=== PATIENT | male | born 1975 | race Caucasian/White ===

== ENCOUNTER 2021-08-31 08:28 | Emergency (ER) | payer OTHER ==
[~2021-08-31] VITALS: Ht 195.6 cm; Wt 104.3 kg
[2021-08-31 10:24] LABS: BASOPHILS % (AUTO) 0.1 % (0.0-5.0); EOSINOPHILS % (AUTO) 0.1 % (0.0-8.0); HEMATOCRIT 46.2 % (42-54); LYMPHOCYTES % (AUTO) 20.9 % (21.0-51.0); MEAN CORPUSCULAR HEMOGLOBIN 30.5 pg (27.0-33.0); MEAN CORPUSCULAR HGB CONC 34.6 g/dL (32.0-36.0); MONOCYTES % (AUTO) 7.9 % (3.0-13.0); NEUTROPHILS % (AUTO) 70.6 % (40.0-77.0); PLATELET COUNT (AUTO) 164 K/uL (130-400); RED BLOOD CELL COUNT(AUTO) 5.25 MIL/uL (4.50-6.20); RED CELL DISTRIBUTION WIDTH 12.9 % (11.0-15.5); WHITE BLOOD COUNT (AUTO) 7.9 K/uL (4.8-10.8)
[2021-08-31] MEDS ORDERED: ORPHENADRINE CITRATE 30 MG/ML ML IV SCH (10:30)
[2021-08-31] MEDS ORDERED: KETOROLAC 30MG VIAL (30MG/ML) IV ONE (10:30)
[2021-08-31] MEDS ORDERED: ONDANSETRON 4MG INJ IVP ONE (10:30)
[2021-08-31 10:34] LABS: CREATININE 1.4 mg/dL (0.5-1.5); POTASSIUM 3.6 mmol/L (3.5-5.1)
[2021-08-31 10:43] LABS: ALBUMIN 3.4 g/dL (3.5-5.0); BILIRUBIN,TOTAL 0.6 mg/dL (0.2-1.0); TOTAL PROTEIN, SERUM 7.6 g/dL (6.0-8.3)
[2021-08-31] MEDS ORDERED: 0.9%NACL 1000ML 1,000 ML IV ONE ×2 (12:30→15:34)
[2021-08-31] MEDS ORDERED: 0.9%NACL 1000ML 1,000 ML IV SCH (16:00)
[2021-08-31] MEDS ORDERED: PROM25TA7 PO (17:26)
[2021-08-31 17:57] VITALS: BP 117/72
== END 2021-08-31 18:01 | disposition home or self-care (01) ==
LOC: EDH 08:28
DX: G89.29 Other chronic pain (principal); M54.50 Low back pain, unspecified; R11.2 Nausea with vomiting, unspecified; I10 Essential (primary) hypertension
CPT/HCPCS: 36415; 71045; 80053; 82550; 83690; 84484; 85025; 93005; 96361; 96374; 96375; 99285; J1885; J2360; J2405; J7030